=== PATIENT | male | born 1985 | race Caucasian/White ===

== ENCOUNTER 2016-05-09 18:35 | Observation (INO) ==
[2016-05-09] MEDS ORDERED: Naloxone 0.4 MG/ML INJ IVP ONE ×2 (18:50→22:06)
--- NOTE | 2016-05-09 20:36 | Emergency Department Note ---
Overdose - [facility] Narrative Medical decision making narrative: 93% on room air. Patient was slurring his words, had pinpoint pupils, falling asleep on exam. Patient is given 0.4 mg of Narcan during the interview. The rest of the physical exam was fairly benign. Plan to monitor the patient for 4 hours due to ingestion of Percocet. Patient had to be given another 0.4 mg dose to 2 decreased responsiveness and oxygen dependent down to 90% on room air. 20:48 95% on RA. Arousable. No distress. 23:44 I reassessed patient again. He had to be given 1mg of narcan again. He is now alert, oriented x3, 99% RA. Mild nausea, given zofran. He is refusing to stay for admission. I discussed with the patient that he could become somnolent again, have decreased respiration, become hypoxic, stop breathing, and even if he went home without supervision. He said he understood the risks, is having a friend coming to pick him up and monitor him tonight. He will sign out AMA. 00:03 Discussed again with patient, he is now becoming groggy again. He has agreed to stay for monitoring. 00:10 Dr. Mckee requested CBC, BMP, and CXR to be drawn. This will be followed up by hospitalist on the floor. - Medical Records Medical records reviewed: Yes I reviewed the patient's medical records. - Lab Data Result diagrams: 05/10/16 01:17 05/10/16 01:17 Lab Results 05/09/16 Range/Units 18:44 POC Glucose 92 H (58-89) - EKG Data EKG attestation: Yes I reviewed and interpreted this EKG. EKG results narrative: Third 20 1718:44. Sinus rhythm. Rate 97. KS 153. QRS 85. QTc 376. Normal axis. No acute ST elevation or depression. Overdose HPI - General Chief Complaint: ED Overdose Stated Complaint: OD Time Seen by Provider: 05/09/16 18:44 Source: patient, EMS Mode of arrival: EMS Limitations: other Nursing Notes Reviewed: Yes Vital Signs Reviewed: Yes - History of Present Illness HPI Narrative: Patient is a 30-year-old male with past medical history of chronic back pain who presents today due to overdose. Patient was found unresponsive. His abdomen where he was found unresponsive. Patient was given two 0.4mg doses of Narcan, and additional 2 mg of Narcan via EMS on the way in. On presentation, patient was slurring his words, had pinpoint pupils. He required an additional 0.4 mg Narcan dose during the interview. He claims that he take 2-3 Percocet a few hours prior to arrival to the back pain. He had no intention of suicide. Denies any chest pain, shortness of breath, any other abdominal pain or injuries. Denies any other drug use - Related Data Allergies Allergy/AdvReac Type Severity Reaction Status Date / Time No Known Allergies Allergy Verified 05/09/16 18:37 All systems ED: reviewed and negative except as stated. Cardiovascular: Denies: chest pain Respiratory: Denies: cough, dyspnea Gastrointestinal: Denies: abdominal pain, nausea, vomiting Musculoskeletal: Denies: back pain, neck pain, arthralgia Integumentary: Denies: rash Neurological: Denies: headache, weakness, numbness, paresthesias Past Medical History - Past Medical History Attestation: Yes The following information was validated with the patient. Source: patient Medical history: Reports: other Psychiatric history: Reports: anxiety, depression - Social History Smoking Status: Current every day smoker Smokeless Tobacco Status: No Alcohol use: Reports: occasionally, recent Drug use: Reports: opiates, marijuana, prescription drug abuse Physical Exam - General Limitations: other General appearance: other (slurring words, unable to keep eyes open) - Head Head exam: atraumatic, normocephalic, normal inspection - Eye Eye exam: Present: normal appearance, EOMI, other (Pinpoint pupils, equal and reactive) - ENT ENT exam: normal exam, normal oropharynx, mucous membranes moist - Neck Neck exam: Present: normal inspection, full ROM, trachea midline. Absent: tenderness - Chest Chest inspection: Present: normal inspection, symmetric chest wall rise - Respiratory Respiratory exam: Present: normal lung sounds bilaterally. Absent: respiratory distress, wheezes - Cardiovascular Cardiovascular exam: Present: regular rate, normal rhythm, normal heart sounds - Abdominal Exam Abdominal exam: Present: soft, Non-Tender. Absent: tenderness, distention, guarding, rebound, rigidity - Extremities Exam Extremities exam: Present: normal inspection, full ROM. Absent: tenderness, pedal edema - Neurological Exam Neurological exam: Present: other (slurring words, falling asleep on exam, oriented x3) - Psychiatric Psychiatric exam: Present: normal mood, flat affect - Skin Skin exam: Present: warm, dry, intact, normal color Course Course Narrative: 93% on room air. Patient was slurring his words, had pinpoint pupils, falling asleep on exam. Patient is given 0.4 mg of Narcan during the interview. The rest of the physical exam was fairly benign. Plan to monitor the patient for 4 hours due to ingestion of Percocet. Patient had to be given another 0.4 mg dose to 2 decreased responsiveness and oxygen dependent down to 90% on room air. 20:48 95% on RA. Arousable. No distress. 23:44 I reassessed patient again. He had to be given 1mg of narcan again. He is now alert, oriented x3, 99% RA. Mild nausea, given zofran. He is refusing to stay for admission. I discussed with the patient that he could become somnolent again, have decreased respiration, become hypoxic, stop breathing, and even if he went home without supervision. He said he understood the risks, is having a friend coming to pick him up and monitor him tonight. He will sign out AMA. 00:03 Discussed again with patient, he is now becoming groggy again. He has agreed to stay for monitoring. 00:10 Dr. Mckee requested CBC, BMP, and CXR to be drawn. This will be followed up by hospitalist on the floor. Vital Signs Temperature 97.9 F 05/09/16 18:39 Pulse Rate 105 05/09/16 18:39 Respiratory Rate 12 05/09/16 18:39 Blood Pressure 122/92 05/09/16 18:39 O2 Sat by Pulse Oximetry 93 05/09/16 18:39 Temperature 99.3 F 05/10/16 07:00 Pulse Rate 86 05/10/16 07:00 Respiratory Rate 16 05/10/16 07:00 Blood Pressure 127/70 05/10/16 07:00 O2 Sat by Pulse Oximetry 97 05/10/16 07:00 Oxygen Delivery Oxygen Delivery Room Air Disposition Clinical Impression: Overdose Qualifiers: Encounter type: initial encounter Injury intent: undetermined intent Qualified Code(s): T50.904A - Poisoning by unspecified drugs, medicaments and biological substances, undetermined, initial encounter Disposition: Admitted As Inpatient Condition: Fair Time of Disposition: 23:56 S.B.A.R. - Concepcion Situation: Demographics, MOA Background: Presenting Complaint, Relevant PMH, Meds, & Allergies Assessment: Vital Signs, Course and respsone to treatment, Exam Concerns, Patient/Family Expectation, Pertinant Lab Results, Outstanding Labs Recommendation: Barrier(s) to disposition, Recommendation based on pending studies, treatments, or consults Concepcion Report Given to: Dr. Mckee. Concepcion Repor Time: 00:50 Attestation Statement - Attestation Attestation: I examined this patient and my medical decision-making was reviewed with the Resident Physician. I agree with the documented findings, disposition and treatment plan as described.
[2016-05-09] MEDS ORDERED: Ondansetron 4 MG/2 ML VIAL IVP ONE (23:19)
[2016-05-10 01:43] LABS: Basophils % 0.2 %; Eosinophils % 0.1 %; Hematocrit 43.6 % (37.5-50.1); Hemoglobin 14.9 g/dL (12.9-16.9); Immature Granulocytes % 0.3 % (0-4); Lymphocytes # 2.5 K/mcL (0.6-4.6); Mean Corpuscular HGB Conc 34.2 g/dL (31.6-35.5); Mean Corpuscular Volume 99.5 fL (83.0-100.0); Mean Platelet Volume 9.6 fL (9.4-12.4); Monocytes # 1.6 K/mcL (0.0-1.3); Monocytes % 9.6 %; Neutrophils # 12.4 K/mcL (1.6-8.9); Platelet Count 306 K/mcL (140-400); Red Blood Count 4.38 M/mcL (4.19-5.50); Red Cell Distribution Width 12.2 % (11.5-14.5); Segmented Neutrophils % 74.8 %
[2016-05-10 01:58] LABS: BUN/Creatinine Ratio 9 (6-26); Blood Urea Nitrogen 9 mg/dL (8-26); Calcium 9.2 mg/dL (8.6-10.8); Carbon Dioxide 23 mEq/L (19-29); Chloride 105 mEq/L (98-109); Glucose 87 mg/dL (70-99); Osmolality,Calculated 290 (280-300); Potassium 4.2 mEq/L (3.5-4.5); Sodium 141 mEq/L (136-145); eGFR For African Americans > 60 (> 60); eGFR For Non-African Americans > 60 (> 60)
[2016-05-10] MEDS ORDERED: Naloxone 0.4 MG/ML INJ IVP PRN ×2 (02:49→03:03)
[2016-05-10] MEDS ORDERED: 0.9 % Sodium Chloride 500 ML IVC ONE (02:51)
[2016-05-10] MEDS ORDERED: 0.9 % Sodium Chloride 1,000 ML ONE (02:54)
--- NOTE | 2016-05-10 02:58 | Internal Med History&Physical ---
Date of Encounter: 05/10/16 Time of Encounter: 02:53 Assessment and Plan (1) Overdose Current visit: Yes Status: Acute Neuro checks. Monitor His respiratory status, goal at least 12 respirations per minute. Telemetry monitoring. IV fluids. Urine toxicology. Evaluation by social services assistant. Qualifiers: Encounter type: initial encounter Injury intent: undetermined intent Qualified Code(s): T50.904A - Poisoning by unspecified drugs, medicaments and biological substances, undetermined, initial encounter Internal Medicine - H&P: HPI Chief complaint: OD Admitted From: Emergency Dept Plans for Post Hospital Care: Home History of present illness: Mr. Prado is a 30 year old male with past medical history of anxiety and depression. Poor historian due to opiate overdose. Was brought via EMS, Narcan was given on the field. Info obtained from ED records. Upon admission to ED patient was slurring his words, had pinpoint pupils, falling asleep on exam. Patient was given 0.4 mg of Narcan during the interview. He was admitted due to ingestion of Percocet. Patient had to be given another 0.4 mg dose due to decreased responsiveness and oxygen dependent down to 90% on room air. He was then reevaluated in the ED. He had to be given 1mg of narcan again. He was alert, oriented x3, 99% RA. Mild nausea, given zofran. He was refusing to stay for admission. ED staff discussed with the patient that he could become somnolent again, have decreased respiration, become hypoxic, stop breathing, and even if he went home without supervision. He said he understood the risks, is having a friend coming to pick him up and monitor him tonight. He was going to sign out AMA, however, the ED staff discussed again with patient, he finally agreed to stay for monitoring. Continue with the patient he was still drowsy however he responded to verbal stimuli. He says that he knows why he is here, he knows he is in the hospital and he knows that "he did this to himself". The patient has been admitted for further management and workup. Past Med Surg Social Fam HX - Past Medical History Medical history: other Psychiatric history: anxiety, depression - Social History Smoking Status: Current every day smoker Smokeless Tobacco Status: No Alcohol use: occasionally, recent Drug use: opiates, marijuana, prescription drug abuse Internal Medicine - H&P: Meds Allergies No Known Allergies Allergy (Verified 05/09/16 18:37) ROS unobtainable: due to mental status All Systems PM: A 10-system review of systems was performed and is negative for pertinent findings except as documented above in the HPI. - Constitutional Constitutional: no chills, no fever(s), no night sweats - EENT Eyes: no change in vision, no discharge, no pain, no photophobia Ears: no ear discharge, no ear pain, no tinnitus Nose, mouth and throat: no dysphagia, no nasal discharge, no neck pain, no sore throat - Cardiovascular Cardiovascular ROS IM: no chest pain, no diaphoresis, no dyspnea, no lightheadedness, no palpitations, no syncope - Respiratory Respiratory: no cough, no dyspnea, no wheezing, no excessive phlegm production - Gastrointestinal Gastrointestinal: no abdominal pain, no diarrhea, no hematemesis, no hematochezia, no melena, no nausea, no vomiting - Musculoskeletal Musculoskeletal ROS IM: no numbness, no tingling - Integumentary Integumentary IM: no rash, no unusual bruising - Neurological Neurological ROS: no confusion, no convulsions, no focal weakness, no numbness, no tingling, no tremor(s) - Hematologic/Lymphatic Hematologic/Lymphatic: no easy bruising - Constitutional Vitals: Temp Pulse Resp BP Pulse Ox 98.1 F 94 14 123/74 87 05/10/16 01:15 05/10/16 01:15 05/10/16 01:15 05/10/16 01:15 05/10/16 01:15 General appearance: Present: cooperative, disheveled, A&O X 2, no acute distress Exam: Responds to verbal stimuli. Patient has multiple tattoos throughout his body, including his facial area - Head Head exam: Present: atraumatic, normocephalic - Eye Eye exam: Present: PERRL, conjuntiva pink, sclera anicteric Pupils: Present: PERRL - Neck Neck exam general surgery: Present: supple, trachea midline. Absent: lymphadenopathy - Respiratory Respiratory exam: Present: CTAB. Absent: accessory muscle use, rales, rhonchi, wheezes - Cardiovascular Cardiovascular exam: Present: RRR, +S1, +S2. Absent: diastolic murmur, gallop, rubs, systolic murmur - GI/Abdominal GI/Abdominal exam: Present: normal bowel sounds, soft, no peritoneal signs. Absent: distended, tenderness - Extremities Exam Extremities exam: Present: warm, radial pulses palpable and symetrical. Absent : calf tenderness, cyanotic, pedal edema - Neurological Exam Neurological exam: Present: no focal deficits. Absent: pronater drift, facial droop, speech deficit - Skin Skin exam: Present: dry, intact Internal Med - H&P Results - Labs CBC & Chem 7: 05/10/16 01:17 05/10/16 01:17 Labs: Short CBC 05/10/16 Range/Units 01:17 WBC 16.6 H (4.3-11.1) K/mcL Hgb 14.9 (12.9-16.9) g/dL Hct 43.6 (37.5-50.1) % Plt Count 306 (140-400) K/mcL Neutrophils # 12.4 H (1.6-8.9) K/mcL BMP 05/10/16 01:17 Sodium 141 Potassium 4.2 Chloride 105 Carbon Dioxide 23 BUN 9 Creatinine 0.99 Glucose 87 Calcium 9.2 - Impressions ITS Impressions Chest X-Ray 05/10/16 00:15 IMPRESSION: Normal portable chest examination. D/ / Johnny Bolton MD / Johnny Bolton MD Interpreting Provider: Johnny Bolton MD
[2016-05-10] MEDS: 0.9 % Sodium Chloride 1,000 ML IVC SCH ×3 (03:36→20:29)
[2016-05-10] MEDS: Ondansetron 4 MG/2 ML VIAL IVP PRN ×2 (04:38→10:43)
[2016-05-10] MEDS: *HR* Heparin 5,000 UNIT/ML VIAL SQ SCH ×2 (06:06→17:23)
[2016-05-10] MEDS: Famotidine 20 MG/2 ML VIAL IVP SCH ×2 (06:06→17:18)
[2016-05-10 06:24] LABS: HIV-1&2 Antibody & p24 Ag Nonreactive (Nonreactive); Hepatitis A Antibody IgM Nonreactive (Nonreactive); Hepatitis B Core IgM Nonreactive (Nonreactive); Hepatitis B Surface Antigen Nonreactive (Nonreactive)
--- NOTE | 2016-05-10 09:23 | Electrocardiograph Report ---
[place] [id number] Test Date: 2016-05-09 Pat Name: Wallace Prado Department: 103 Room: 3B14 Gender: M Edge Bonder: AM : 1985 Requested By: Cristian Trilpett Order Number: [id number] Reading MD: Rei Blank MD Measurements Intervals [place] Rate: 102 P: 74 MD: 142 QRS: 65 QRSD: 86 T: 42 QT: 324 QTc: 383 Interpretive Statements SINUS TACHYCARDIA POSSIBLE LEFT VENTRICULAR HYPERTROPHY POOR R WAVE PROGRESSION ARTIFACT PRESENT Electronically Signed On 05-10-2016 9:21:45 EDT by Rei Blank MD
[2016-05-10 10:02] LABS: Hepatitis C Virus Antibody Reactive (Nonreactive)
[2016-05-10] MEDS ORDERED: Ondansetron 4 MG/2 ML VIAL IVP PRN (12:28)
[2016-05-10 12:40] LABS: Amphetamine Screen,Urine Positive ng/mL (Cutoff=1000); Barbiturate Screen,Urine Negative ng/mL (Cutoff=200); Benzodiazepines Screen,Urine Positive ng/mL (Cutoff=200); Cannabinoid Screen,Urine Positive ng/mL (Cutoff = 50); Cocaine Screen,Urine Negative ng/mL (Cutoff= 300); Opiate Screen,Urine Positive ng/mL (Cutoff=300); Phencyclidine Screen,Urine Negative ng/mL (Cutoff=25)
--- NOTE | 2016-05-10 12:42 | Event Note ---
Date of Encounter: 05/10/16 Time of Encounter: 09:30 (and 1215) Patient seen and examined earlier this morning. On examination, patient sitting upright in bed and sleep. He awakens to voice and answers questions appropriately then quickly falls back to sleep. Unable to provide a urine specimen. Seen and reexamined earlier this afternoon and he remained oriented 3 and able to answer questions however listless and drowsy. 14-Omani coude catheter placed and sent for tox screen. Patient with minimal response to catheter placement. Of note, straight catheter 2 unsuccessful prior to placement of a coude tip. Will also send for STI testing as the patient stated that he has been with four women over the past day. Awaiting results, we will continue to monitor his mentation. He has not required Narcan since early this morning. He states he only remembers taking 2 or 3 Percocets however his clinical picture is consistent with likely multi drug overdose. Dr. winter pending. Mild leukocytosis noted, hepatitis panel negative. Chest x-ray negative. ITS Impressions Chest X-Ray 05/10/16 00:15 IMPRESSION: Normal portable chest examination. D/ / Johnny Bolton MD / Johnny Bolton MD Interpreting Provider: Johnny Bolton MD
--- NOTE | 2016-05-10 18:38 | Discharge Summary ---
Date of Encounter: 05/10/16 Time of Encounter: 09:30 (and 1230, and 1800) - Discharge Diagnosis (1) Overdose Priority: Primary Status: Acute Comments: Tox screen positive for opiates, amphetamines, benzos, and marijuana. Patient alert and oriented 3 at time of discharge. He denied suicidal ideation throughout this admission. Qualifiers: Encounter type: initial encounter Injury intent: undetermined intent Qualified Code(s): T50.904A - Poisoning by unspecified drugs, medicaments and biological substances, undetermined, initial encounter (2) Urinary retention Priority: Primary Status: Resolved Comments: Patient was straight catheter, was able to void after placement. Likely due to multidrug overdose. (3) Has multiple sexual partners Priority: Secondary Status: Chronic Comments: Patient endorsed at least for partners over the past day, HIV negative. Hepatitis C antibody positive. Gonorrhea and chlamydia pending at time of discharge, follow-up outpatient (4) Leukocytosis Priority: Primary Status: Acute Comments: Likely stress related, no signs of active infection Qualifiers: Leukocytosis type: unspecified Qualified Code(s): D72.829 - Elevated white blood cell count, unspecified - Discharge Medications Prescriptions: Ondansetron ODT [Zofran ODT] 4 mg SL Q6HR PRN #12 tab.rapdis PRN Reason: Nausea And Vomiting Home Medications: Ondansetron ODT [Zofran ODT] 4 mg SL Q6HR PRN #12 tab.rapdis 05/10/16 [Rx] Allergies/Adverse Reactions: Allergies No Known Allergies Allergy (Verified 05/09/16 18:37) Date of admission: 05/09/16 23:38 Primary care physician: PCP NO Consults: 05/10/16 02:51 Consult to [employer] [CONS] Routine Reason for SW Consult: Admitted due to opiod overdose Discharging clinician: Shayna Alejandro Anticipated date of discharge: 05/10/16 (now A&Ox3) - Patient Status Disposition: Home, Self-Care Condition: Fair Functional capacity at discharge: independent ambulation Overall status at discharge: patient is back to baseline - Discharge Instructions Instructions: Adult Overdose (ED) Follow Up With: [facility] [Outside] NO,PCP [Primary Care Provider] - Additional Instructions: Follow-up with residency clinic in 1-2 weeks - Diet and Activity Activity: increase activity as tolerated Diet: regular diet Hospital course: Mr. Prado is a 30 year old male with past medical history of tobacco abuse, marijuana abuse, opiate abuse, prescription drug abuse, anxiety and depression. Patient was brought in via EMS after he was found unresponsive per EMS. He was given Narcan once in the field, 3 times in the emergency department, and twice while admitted for a total of 5 doses since arrival at the hospital. Chest x-ray negative. Patient was admitted to the hospitalist service for further evaluation and management. He was admitted and observed over the course of one night and the following day after his ingestion, patient slowly became more alert and oriented and at time of discharge, he was back to his baseline and was alert and oriented 3 and tolerating a regular diet. He did have urinary retention that was relieved with a straight catheter and he was able to void after the catheter was removed. Tox screen positive for opiates, amphetamines, benzos, and marijuana. Routine serology also positive for hepatitis C antibody. HIV negative. Gonorrhea and chlamydia pending at time of discharge. Patient endorsing multiple sexual partners. Patient denied suicidal or homicidal ideation throughout this admission. He states the one thing that he remembers taking his 2 or 3 Percocets and claims that his friends must have dropped him on the other medications. He was discharged home in stable condition with close outpatient follow-up recommended. He declined any resources or counseling. ITS Impressions Chest X-Ray 05/10/16 00:15 IMPRESSION: Normal portable chest examination. D/ / Johnny Bolton MD / Johnny Bolton MD Interpreting Provider: Johnny Bolton MD - Time Spent with Patient Total time spent providing and/or coordinating discharge services: - Constitutional Vitals: Temp Pulse Resp BP Pulse Ox 98.3 F 87 14 122/66 97 05/10/16 15:23 05/10/16 15:23 05/10/16 15:23 05/10/16 15:23 05/10/16 15:23 General appearance: Present: cooperative, disheveled, A&O X 3, pleasant, no acute distress, answers questions appropriately - Head Head exam: Present: atraumatic, normocephalic - Eye Eye exam: Present: PERRL, conjuntiva pink, sclera anicteric Pupils: Present: PERRL - Neck Neck exam general surgery: Present: supple, trachea midline. Absent: lymphadenopathy - Respiratory Respiratory exam: Present: CTAB. Absent: accessory muscle use, rales, respiratory distress, rhonchi, wheezes - Cardiovascular Cardiovascular exam: Present: RRR, +S1, +S2. Absent: diastolic murmur, gallop, rubs, systolic murmur - GI/Abdominal GI/Abdominal exam: Present: normal bowel sounds, soft, no peritoneal signs. Absent: distended, tenderness - Extremities Exam Extremities exam: Present: warm, radial pulses palpable and symetrical. Absent : calf tenderness, cyanotic, pedal edema - Neurological Exam Neurological exam: Present: alert, CN II-XII intact, normal gait, oriented X3, no focal deficits, strengths equal and symetr throughout. Absent: pronater drift, facial droop, speech deficit - Skin Skin exam: Present: dry, intact, normal color, warm
[2016-05-11 04:51] LABS: Basophils % 0.2 %; Eosinophils # 0.1 K/mcL (0.0-0.6); Eosinophils % 0.7 %; Hematocrit 38.2 % (37.5-50.1); Immature Granulocytes % 0.2 % (0-4); Lymphocytes % 18.5 %; Mean Corpuscular HGB Conc 34.6 g/dL (31.6-35.5); Mean Corpuscular Volume 101.3 fL (83.0-100.0); Mean Platelet Volume 10.4 fL (9.4-12.4); Monocytes # 1.3 K/mcL (0.0-1.3); Neutrophils # 11.8 K/mcL (1.6-8.9); Platelet Count 243 K/mcL (140-400); Red Blood Count 3.77 M/mcL (4.19-5.50); Red Cell Distribution Width 12.1 % (11.5-14.5); Segmented Neutrophils % 72.4 %
[2016-05-11 04:59] LABS: Hemoglobin 13.2 g/dL (12.9-16.9)
[2016-05-11 05:13] LABS: Albumin 2.8 g/dL (3.5-5.0); Bilirubin,Direct 0.2 mg/dL (0.0-0.5); Bilirubin,Indirect 0.4 mg/dL (0.0-1.2); Bilirubin,Total 0.6 mg/dL (0.2-1.2); Globulin 2.9 g/dL (2.4-3.5); Total Protein 5.7 g/dL (6.0-8.3)
[2016-05-11] MEDS: *HR* Heparin 5,000 UNIT/ML VIAL SQ SCH (05:46)
[2016-05-11] MEDS: Famotidine 20 MG/2 ML VIAL IVP SCH (05:46)
[2016-05-11 07:09] VITALS: BP 90/52
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
== END 2016-05-11 12:30 | disposition home or self-care (01) ==
LOC: EMEROO 18:35 → 3BNU 18:35
PROVIDERS: ADMIT Internal Medicine; ATTEND Nurse Practitioner Family

== ENCOUNTER 2018-10-23 05:02 | Observation (INO) ==
[2018-10-23] MEDS ORDERED: *HR* LORazepam 2 MG/ML VIAL IVP ONE (05:22)
[2018-10-23] MEDS ORDERED: *HR* LORazepam 2 MG/ML VIAL ONE (05:23)
[2018-10-23] MEDS ORDERED: 0.9 % Sodium Chloride 1,000 ML IVC ONE ×3 (05:23→08:40)
[2018-10-23] MEDS ORDERED: 0.9 % Sodium Chloride 1,000 ML ONE (05:24)
[2018-10-23] MEDS ORDERED: diazePAM 10 MG/2 ML SYRINGE IVP ONE (05:27)
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
[2018-10-23 05:39] LABS: Basophils # 0.1 K/mcL (0.0-0.2); Basophils % 0.3 %; Hematocrit 46.9 % (37.5-50.1); Hemoglobin 15.3 g/dL (12.9-16.9); Immature Granulocytes % 0.4 % (0-4); Lymphocytes # 2.4 K/mcL (0.6-4.6); Lymphocytes % 13.1 %; Mean Corpuscular HGB Conc 32.6 g/dL (31.6-35.5); Mean Corpuscular Hemoglobin 33.6 pg (28.0-33.3); Mean Corpuscular Volume 102.9 fL (83.0-100.0); Mean Platelet Volume 9.2 fL (9.4-12.4); Monocytes # 1.7 K/mcL (0.0-1.3); Monocytes % 8.8 %; Neutrophils # 14.5 K/mcL (1.6-8.9); Platelet Count 415 K/mcL (140-400); Red Blood Count 4.56 M/mcL (4.19-5.50); Red Cell Distribution Width 13.2 % (11.5-14.5); Segmented Neutrophils % 77.4 %; White Blood Count 18.7 K/mcL (4.3-11.1)
[2018-10-23 06:00] LABS: Acetaminophen < 10 mcg/mL (10-20); BUN/Creatinine Ratio 14 (6-26); Blood Urea Nitrogen 20 mg/dL (6-20); Calcium 9.9 mg/dL (8.6-10.3); Carbon Dioxide 16 mEq/L (23-29); Chloride 101 mEq/L (98-107); Creatine Kinase 267 Units/L (30-223); Ethanol < 10 mg/dL (Less than 10); Glucose 125 mg/dL (70-105); Osmolality,Calculated 300 (280-300); Potassium 3.4 mEq/L (3.5-5.1); Salicylate < 2.5 mg/dL (15.0-30.0); Sodium 143 mEq/L (136-145); eGFR For African Americans > 60 (> 60); eGFR For Non-African Americans 55 (> 60)
[2018-10-23 06:07] LABS: Bilirubin,Urine Negative (Negative); Blood,Urine Negative (Negative); Clarity,Urine Clear (Clear); Color,Urine Dark Yellow (Yellow); Glucose,Urine (UA) Normal (Normal); Ketones,Urine Negative (Negative); Leukocyte Esterase,Urine Negative (Negative); Nitrite,Urine Negative (Negative); Protein,Urine 30 mg/dL (Neg-Trace); Specific Gravity,Urine > 1.030 (1.010-1.025); Urobilinogen,Urine Normal (Normal)
[2018-10-23 06:09] LABS: Bacteria,Urine None Seen per hpf (None-Few); Hyaline Casts,Urine None Seen per lpf (None-Few); Squamous Epithelial Cell,Urine Moderate per lpf (None-Few); WBC,Urine 0-3 per hpf (0-3)
[2018-10-23 06:09] LABS: Amphetamine Screen,Urine Positive ng/mL (Cutoff=1000); Barbiturate Screen,Urine Negative ng/mL (Cutoff=200)
[2018-10-23 06:11] LABS: Benzodiazepines Screen,Urine Negative ng/mL (Cutoff=300); Cannabinoid Screen,Urine Negative ng/mL (Cutoff = 50); Cocaine Screen,Urine Positive ng/mL (Cutoff= 300); Opiate Screen,Urine Negative ng/mL (Cutoff=300); Phencyclidine Screen,Urine Negative ng/mL (Cutoff=25)
[2018-10-23] MEDS ORDERED: diazePAM 10 MG/2 ML SYRINGE IVP STA (06:20)
[2018-10-23 06:21] LABS: Thyroid Stimulating Hormone 2.179 mcIU/mL (0.340-5.600)
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
[2018-10-23] MEDS ORDERED: *HR* LORazepam 2 MG/ML VIAL IVP STA ×4 (07:40→09:37)
[2018-10-23] MEDS ORDERED: Ondansetron 4 MG/2 ML VIAL IVP PRN (14:00)
[2018-10-23] MEDS ORDERED: Naloxone 0.4 MG/ML INJ IVP PRN (14:00)
[2018-10-23] MEDS ORDERED: Haloperidol Lactate 5 MG/ML VIAL IVP PRN (14:22)
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
[2018-10-23] MEDS: Dexmedetomidine HCl 400 MCG/100 ML MLS IVC SCH ×2 (14:59→23:13)
[2018-10-23] MEDS: 0.9 % Sodium Chloride w KCl 40 MEQ/1,000 ML MLS IVC SCH (15:04)
[2018-10-23] MEDS: *HR* LORazepam 2 MG/ML VIAL IVP PRN ×2 (15:17→21:54)
[2018-10-23] MEDS: *HR* Heparin 5,000 UNIT/ML VIAL SQ SCH (16:32)
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
[2018-10-24] MEDS: 0.9 % Sodium Chloride w KCl 40 MEQ/1,000 ML MLS IVC SCH ×2 (02:01→11:39)
[2018-10-24 05:44] LABS: Basophils % 0.5 %; Eosinophils # 0.1 K/mcL (0.0-0.6); Eosinophils % 0.6 %; Hematocrit 38.1 % (37.5-50.1); Immature Granulocytes % 0.1 % (0-4); Lymphocytes # 2.6 K/mcL (0.6-4.6); Lymphocytes % 30.9 %; Mean Corpuscular HGB Conc 33.3 g/dL (31.6-35.5); Mean Corpuscular Hemoglobin 34.6 pg (28.0-33.3); Mean Corpuscular Volume 103.8 fL (83.0-100.0); Mean Platelet Volume 9.6 fL (9.4-12.4); Monocytes # 0.8 K/mcL (0.0-1.3); Monocytes % 9.5 %; Neutrophils # 4.9 K/mcL (1.6-8.9); Platelet Count 233 K/mcL (140-400); Red Blood Count 3.67 M/mcL (4.19-5.50); Red Cell Distribution Width 13.2 % (11.5-14.5); Segmented Neutrophils % 58.4 %
[2018-10-24 05:45] LABS: Hemoglobin 12.7 g/dL (12.9-16.9); White Blood Count 8.3 K/mcL (4.3-11.1)
[2018-10-24 06:15] LABS: BUN/Creatinine Ratio 17 (6-26); Blood Urea Nitrogen 14 mg/dL (6-20); Calcium 8.5 mg/dL (8.6-10.3); Carbon Dioxide 23 mEq/L (23-29); Chloride 107 mEq/L (98-107); Glucose 93 mg/dL (70-105); Magnesium 2.1 mg/dL (1.6-2.6); Osmolality,Calculated 290 (280-300); Potassium 4.4 mEq/L (3.5-5.1); Sodium 140 mEq/L (136-145); eGFR For African Americans > 60 (> 60); eGFR For Non-African Americans > 60 (> 60)
[2018-10-24] MEDS: *HR* Heparin 5,000 UNIT/ML VIAL SQ SCH (06:20)
[2018-10-24] MEDS: Dexmedetomidine HCl 400 MCG/100 ML MLS IVC SCH (09:38)
[2018-10-24 11:09] VITALS: BP 97/60
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
--- NOTE | 2018-10-24 17:51 | Electrocardiograph Report ---
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
== END 2018-10-24 14:25 | disposition home or self-care (01) ==
LOC: EMEROOARM 05:02 → 2NNU 05:02 → SUATTDRO 13:59 → 2NNU 14:34
PROVIDERS: ADMIT Internal Medicine; ATTEND Internal Medicine